=== PATIENT | male | born 1995 | race Caucasian/White ===

== ENCOUNTER 2016-12-31 13:26 | Emergency (ER) | payer SELFPAY ==
[2016-12-31 13:46] VITALS: BP 116/80; PULSE 102; RESP 16; TEMP 99.3; O2SAT 94
[2016-12-31] MEDS ORDERED: AZITHROMYCIN 250 MG TAB PO ONE (14:04)
--- NOTE | 2016-12-31 14:07 | UCPHY ---
H & P Patient Type: New Chief Complaint Nursing Narrative: flu like s/s x 6 days or so . ST , neck and back ache. Headache. hurts to swallow .nausea. chills and congestion and on/off fever. Denies travel . Time Seen by Provider: 12/31/16 13:52 HPI/ROS: CHIEF COMPLAINT: Sore throat HISTORY OF PRESENT ILLNESS: The patient is a 21-year-old man who comes to the Urgent Care complaining of a sore throat, body aches and fevers. He has had the symptoms for 4 days. He has not had any vomiting or diarrhea or GI symptoms. No chest pain or shortness of breath. Mild dry cough. REVIEW OF SYSTEMS: Constitutional: See HPI EENTM: See HPI Respiratory: See HPI Cardiac: denies: chest pain, irregular heart rate, lightheadedness, palpitations Gastrointestinal/Abdominal: denies: abdominal pain, diarrhea, nausea, vomiting, blood streaked stools Genitourinary: denies: dysuria, frequency, hematuria, pain Musculoskeletal: denies: joint pain, muscle pain Skin: denies: lesions, rash, jaundice, bruising Neurological: denies: headache, numbness, paresthesia, tingling, dizziness, weakness Hematologic/Lymphatic: denies: blood clots, easy bleeding, easy bruising Immunologic/allergic: denies: HIV/AIDS, transplant EXAM: GENERAL: Well-appearing, well-nourished and in no acute distress. HEAD: Atraumatic, normocephalic. EYES: Pupils equal round and reactive to light, extraocular movements intact, sclera anicteric, conjunctiva are normal. ENT: TMs normal, nares patent, oropharynx erythematous with white exudates. Moist mucous membranes. NECK: Normal range of motion, supple without lymphadenopathy or JVD. LUNGS: Breath sounds clear to auscultation bilaterally and equal. No wheezes rales or rhonchi. HEART: Regular rate and rhythm without murmurs, rubs or gallops. ABDOMEN: Soft, nontender, normoactive bowel sounds. No guarding, no rebound. No masses appreciated. BACK: No CVA tenderness, no spinal tenderness, step-offs or deformities EXTREMITIES: Normal range of motion, no pitting or edema. No clubbing or cyanosis. NEUROLOGICAL: Cranial nerves II through XII grossly intact. Normal speech, normal gait. 5/5 strength, normal movement in all extremities, normal sensation PSYCH: Normal mood, normal affect. SKIN: Warm, dry, normal turgor, no visible rashes or lesions. Source: Patient Exam Limitations: No limitations - Medical/Surgical History Hx Asthma: No Hx Chronic Respiratory Disease: No Hx Diabetes: No Hx Cardiac Disease: No Hx Renal Disease: No Hx Cirrhosis: No Hx Alcoholism: No Other PMH: PCP NONE. Denies health issues. Denies surgeries - Family History Significant Family History: No pertinent family hx - Social History Smoking Status: Heavy smoker Alcohol Use: Sober Drug Use: None Constitutional: Initial Vital Signs Temperature (C) 37.4 C 12/31/16 13:43 Heart Rate 102 H 12/31/16 13:43 Respiratory Rate 16 12/31/16 13:43 Blood Pressure 116/80 12/31/16 13:43 O2 Sat (%) 94 12/31/16 13:43 O2 Delivery Mode Room Air Allergies/Adverse Reactions: No Known Allergies Allergy (Unverified 12/31/16 13:46) Home Medications: Medication Instructions Recorded AZITHROMYCIN [Z-PACK] 250 mg PO DAILY #4 tab 12/31/16 Medical Decision Making ED Course/Re-evaluation: the patient is well appearing. I will start him on azithromycin. His rapid strep is positive. He is happy with this plan and declines further workup or testing at this time. Differential Diagnosis: Partial list of the Differential diagnosis considered include but were not limited to; strep throat, pharyngitis, sinusitis, viral syndrome, upper respiratory tract infection and although unlikely based on the history and physical exam, I also considered pneumonia, bronchitis, sepsis, meningitis. I discussed these differential diagnoses and the plan with the patient as well as the usual and expected course. The patient understands that the diagnosis is provisional and that in medicine we are not always correct and that further workup is often warranted. Usual and customary warnings were given. All of the patient's questions were answered. The patient was instructed to return to the emergency department should the symptoms at all worsen or return, otherwise to followup with the physician as we discussed. - Data Points Laboratory Results: 12/31/16 13:40 Group A Strep Screen POSITIVE H (NEGATIVE) Medications Given: Discontinued Medications Azithromycin (Zithromax) 500 mg PO EDNOW ONE PRN Reason: Protocol Stop: 12/31/16 14:05 Last Admin: 12/31/16 14:23 Dose: 500 mg Departure - Departure Disposition: Home, Routine, Self-Care Clinical Impression: Strep throat Condition: Fair Instructions: Strep Throat (ED) Referrals: NONE *PRIMARY CARE P,. [Primary Care Provider] - As per Instructions Prescriptions: AZITHROMYCIN [Z-PACK] 250 mg PO DAILY #4 tab - PQRS PQRS Measurement: Not applicable
== END 2016-12-31 14:25 | disposition home or self-care (01) ==
LOC: CED 13:26
DX: J02.0 Streptococcal pharyngitis (principal)
CPT/HCPCS: 87880-PO; 99204-PO; G0463-PO